=== PATIENT | male | born 1955 ===

== ENCOUNTER 2024-05-05 08:23 | Day surgery (SDC) | payer MEDICARE, OTHER ==
[~2024-05-05] VITALS: Ht 170.2 cm; Wt 82.6 kg
[2024-05-05] VITALS (13 sets, daily range): BP systolic 135–170; BP diastolic 73–100
[2024-05-05] MEDS ORDERED: CeFAZolin Sodium 2,000 MG in NS 100 ML IV SCH (08:45)
[2024-05-05] MEDS ORDERED: Lactated Ringer's 1,000 ML IV SCH (08:45)
--- NOTE | 2024-05-05 09:20 | NUR ---
History, Chart, Medications and Allergies reviewed before start of procedure. Pre-Op teaching done. Pt verbalizes understanding. Patient confirms NPO status and agrees with scheduled surgery. DENTURE CUP SENT WITH CUSTOMER SERVICE TRAINER FOR PT DENTURES. PT BELONGINGS BAG PLACED UNDER BED. PT WALKING STICK LABELED AND PLACED IN PACU.
[2024-05-05] MEDS ORDERED: Bupivacaine 0.5% HCl 5 MG/ML 30MLVIAL ONE (10:13)
[2024-05-05] MEDS ORDERED: Midazolam HCl 1MG / ML 2ML Vial IV SCH (10:15)
[2024-05-05] MEDS ORDERED: Acetaminophen 500 MG Tab PO SCH (10:15)
[2024-05-05] MEDS ORDERED: Lidocaine HCl 2% 20 ML MDV ONE (10:22)
[2024-05-05] MEDS ORDERED: Ondansetron HCl 2 MG / ML 2ML Vial ONE (10:22)
[2024-05-05] MEDS ORDERED: propofoL 20 ML IV ONE (10:22)
[2024-05-05] MEDS ORDERED: Metoclopramide HCl 5MG / ML 2ML Vial ONE (10:22)
[2024-05-05] MEDS ORDERED: Rocuronium Bromide 10 MG/ML 5ML Injection IV ONE ×2 (10:22→11:06)
[2024-05-05] MEDS ORDERED: FentaNYL Citrate 50 MCG/ML 2 ML Injection ONE (10:24)
[2024-05-05] MEDS ORDERED: Sugammadex Sodium 200 MG/2ML SDV (100 MG/ML) ONE (12:15)
[2024-05-05] MEDS ORDERED: HYDROmorphone HCl/Pf 1MG SYR ONE ×2 (12:27→12:53)
[2024-05-05] MEDS ORDERED: OxyCODONE 5 mg/Acetamin 325 mg TABLET PO PRN (12:45)
--- NOTE | 2024-05-05 13:19 | NUR ---
PT TO DAY SURGERY STEP DOWN FROM PACU WITH HENIA REPAIR; BEDSIDE REPORT RECEVIED. PT IS AWAKE, ALERT AND ORIENTED;ABLE TO MOVE SELF IN BED. PT HAS NO COMPLAINTS AT THIS TIME. PT HAS 4 ABD INCISIONS THAT ARE CLOSED WITH EXOFIN AND ARE C/D/I.
--- NOTE | 2024-05-05 13:35 | NUR ---
PT TOLERATING PO FLUIDS. DECLINES ICE PACK. INCISIONS REMAIN C/D/I
--- NOTE | 2024-05-05 13:48 | NUR ---
Discharge instructions reviewed with patient. Patient verbalizes understanding. Copy given to patient to take home. Patient States Post-Procedure ride home has been arranged. Pt dentures given to pt and pt placed in mouth.
--- NOTE | 2024-05-05 14:22 | NUR ---
Patient up to Ambulate independently. Gait steady. Waiting for ride.
--- NOTE | 2024-05-05 14:35 | NUR ---
Pt up to void
--- NOTE | 2024-05-05 14:45 | NUR ---
Pt up to wc, RN noticed blood on pt shirt from umbillicus. Umbillical incision slight red ooze from pt pants rubbing. RN placed guaze and secured with tape; no bleeding through this. Discharged via wheelchair to private car for ride home.
== END 2024-05-05 14:51 | disposition home or self-care (01) ==
LOC: ORSCMMR 08:23 → ORD 10:30 → ORSCMMR 10:30
PROVIDERS: Surgery
PROC: 0DNW4ZZ Release Peritoneum, Percutaneous Endoscopic Approach (ICD-10-PCS; principal; 2024-05-05 10:30)
PROC: 0YU64JZ Supplement Left Inguinal Region with Synthetic Substitute, Percutaneous Endoscopic Approach (ICD-10-PCS; principal; 2024-05-05 10:30)
DX: K40.30 Unilateral inguinal hernia, with obstruction, without gangrene, not specified as recurrent (principal)
CPT/HCPCS: A9270; C1781; J0690; J1171; J2250; J2405; J2704; J2765; J3010; J7120

== ENCOUNTER → 2024-12-08 | Outpatient (CLI) | payer OTHER ==
[2024-12-08 15:15] LABS: BASOPHILS ABSOLUTE AUTO 0.06 K/mm3 (0.00-0.23); BASOPHILS PERCENT AUTO 1 % (0-2); EOSINOPHILS ABSOLUTE AUTO 0.23 K/mm3 (0.00-0.68); EOSINOPHILS PERCENT AUTO 5 % (0-6); Hematocrit 48.4 % (37.0-53.0); Hemoglobin 16.5 g/dL (13.5-17.5); IMMATURE GRAN ABSOLUTE AUTO 0.02 K/mm3 (0.00-0.10); IMMATURE GRAN PERCENT AUTO 0 % (0-1); LYMPHOCYTES ABSOLUTE AUTO 1.21 K/mm3 (0.84-5.20); LYMPHOCYTES PERCENT AUTO 24 % (21-46); MONOCYTES ABSOLUTE AUTO 0.49 K/mm3 (0.16-1.47); MONOCYTES PERCENT AUTO 10 % (4-13); Mean Corpuscular HGB Conc 34.1 g/dL (31.5-36.5); Mean Corpuscular Volume 84 fL (80-100); NEUTROPHILS ABSOLUTE AUTO 3.12 K/mm3 (1.96-9.15); NEUTROPHILS PERCENT AUTO 61 % (41-73); NRBC ABSOLUTE 0.00 K/mm3 (0.00-0.02); NRBC Auto 0.0 /100 WBC (0.0-0.2); Platelet Count 171 K/mm3 (150-400); RDW Coefficient Variation 12.5 % (11.7-14.2); RDW Standard Deviation 38.0 fL (35.1-46.3)
== END ==
LOC: LAB 14:19 → LAB SHORT 14:19
DX: Z00.00 Encounter for general adult medical examination without abnormal findings (principal); Z13.6 Encounter for screening for cardiovascular disorders
CPT/HCPCS: 85025

== ENCOUNTER → 2024-12-13 | Outpatient (CLI) | payer OTHER ==
[2024-12-13 20:04] LABS: Alanine Aminotransfer (ALT/SGP 27 U/L (12-78); Albumin, Blood 4.1 g/dL (3.4-5.0); Albumin/Globulin Ratio 1.0 (0.8-1.8); Anion Gap 8 mmol/L (3-11); Aspartate Aminotrans (AST/SGOT 28 U/L (12-37); Bilirubin, Total 1.4 mg/dL (0.1-1.0); Blood Urea Nitrogen 9 mg/dL (8-24); CHOL/HDL RATIO 3.4; CO2, Blood 28 mmol/L (21-32); Calcium, Blood 8.9 mg/dL (8.5-10.1); Chloride, Blood 99 mmol/L (98-108); Cholesterol 238 mg/dL (50-200); Creatinine, Blood 0.79 mg/dL (0.60-1.20); Globulin, Blood 4.3 g/dL (2.2-4.0); Glucose, Blood 115 mg/dL (70-99); HDL Cholesterol 71 mg/dL (>39); LDL/HDL RATIO 1.7; Low Density Lipoprotein Chol 124 mg/dL (0-110); Potassium, Blood 4.0 mmol/L (3.5-5.5); Sodium, Blood 131 mmol/L (136-145); Total Protein, Blood 8.4 g/dL (6.4-8.2); Triglycerides 215 mg/dL (30-160); Very Low Density Lipoprot Chol 43 mg/dL (6-32)
== END ==
LOC: LAB 14:20 → LAB SHORT 14:20
DX: Z00.00 Encounter for general adult medical examination without abnormal findings (principal); Z13.6 Encounter for screening for cardiovascular disorders
CPT/HCPCS: 80053; 80061

== ENCOUNTER → 2025-03-07 | Outpatient (CLI) | payer OTHER ==
[2025-03-09 07:58] LABS: HIV 1,2 COMBO ANTIGEN/ANTIBODY Negative (Negative)
[2025-03-09 09:41] LABS: HEPATITIS C AB CIA INTERP High Pos (Negative); HEPATITIS C ANTIBODY CIA INDEX >11.00 IV
[2025-03-09 22:06] LABS: HCV QNT BY NAAT (IU/ML) Not Detected; HCV QNT BY NAAT (LOG IU/ML) Not Detected; HCV QNT BY NAAT INTERP Not Detected (Not Detected)
== END | disposition home or self-care (01) ==
LOC: LAB SHORT 16:26 → LAB 16:26
DX: Z11.59 Encounter for screening for other viral diseases (principal); Z11.4 Encounter for screening for human immunodeficiency virus [HIV]
CPT/HCPCS: 86803; 87389; 87522